=== PATIENT | female | born 1970 | race Two or more races ===

== ENCOUNTER 2016-12-28 07:47 | Day surgery (SDC) | payer BC ==
[2016-12-28] VITALS (8 sets, daily range): BP systolic 128–139; BP diastolic 63–79
[~2016-12-28] VITALS: Ht 167.6 cm; Wt 68.0 kg
--- NOTE | 2016-12-28 06:37 | Anethesia Preoperative Eval ---
Anesthesia Pre-op PMH/ROS General Date of Evaluation: Dec 28, 2016 Mallampati Score Class I : Soft palate, uvula, fauces, pillars visible Class II: Soft palate, uvula, fauces visible Class III: Soft palate, base of uvula visible Class IV: Only hard plate visible Allergies: Coded Allergies: No Known Allergies (Unverified , 12/27/16) DHRUV GREY M.D. Dec 28, 2016 06:37
--- NOTE | 2016-12-28 06:53 | Pre-Procedure Note/Attestation ---
Pre-Procedure Note/Attestation Complete Prior to Procedure Planned Procedure: right Procedure Narrative: ankle fracture orif Indications for Procedure Pre-Operative Diagnosis: right ankle fracture Attestation I attest that I discussed the nature of the procedure; its benefits; risks and complications; and alternatives (and the risks and benefits of such alternatives ), prior to the procedure, with the patient (or the patient's legal business services representative). I attest that, if there was a reasonable possibility of needing a blood transfusion, the patient (or the patient's legal business services representative) was given the [facility] standardized written summary, pursuant to the Shane Paxton Blood Safety Act ([place] Health and Safety Code # 1645, as amended). I attest that I re-evaluated the patient just prior to the surgery and that there has been no change in the patient's H&P, except as documented below: ROMERO ESPINOSA Dec 28, 2016 06:53
--- NOTE | 2016-12-28 06:54 | Operative Note - PDOC ---
Operative Note Operative Note Pre-op Diagnosis: right ankle fracture Procedure: orif right ankle Post-op Diagnosis: same as pre-op plus Anesthesia: regional Specimen: none Complications: none Condition: stable Estimated Blood Loss: none Implant(s) used?: Yes ROMERO ESPINOSA Dec 28, 2016 06:54
[~2016-12-28 07:47] MED LIST: D5 1/2NS 1,000 ML IV SCH; HYDROmorphone 1mg/ml Carpuject SUBQ PRN; NKM; Norco 5mg/325mg tab ORAL PRN; Tylenol #3 tab (300mg/30mg) ORAL PRN
[2016-12-28] MEDS ORDERED: celeBREX 200mg Cap **SURGERY PATIENTS ONLY ORAL ONE ×2 (08:30→08:46)
[2016-12-28] MEDS ORDERED: oxyCONTIN 20mg tab ORAL ONE (08:30)
[2016-12-28] MEDS ORDERED: ceFAZolin 1 GM premix IV ONE (08:30)
[2016-12-28] MEDS ORDERED: ceFAZolin sod 1 GM in NS 55 ML IVPB ONE (08:45)
[2016-12-28] MEDS ORDERED: celeBREX 100mg Cap **SURGERY PATIENTS ONLY ORAL ONE (08:45)
[2016-12-28] MEDS ORDERED: celeBREX 200mg Cap **SURGERY PATIENTS ONLY ORAL SCH (09:00)
[2016-12-28] MEDS ORDERED: oxyCONTIN 20mg tab ORAL SCH (09:00)
[2016-12-28] MEDS ORDERED: Bupivacaine w/Epi 0.5% 30ml Vial INJ ONE (09:05)
[2016-12-28] MEDS ORDERED: Ropivacaine 5mg/ml Vial 20ml INJ ONE (09:05)
[2016-12-28] MEDS ORDERED: Bacitracin 50000 Units Vial ONE (09:06)
[2016-12-28] MEDS ORDERED: Midazolam 2mg/2ml Inj ONE (09:45)
[2016-12-28] MEDS ORDERED: fentaNYL 100 mcg/2 mL IV ONE (09:45)
[2016-12-28] MEDS ORDERED: Sterile Water Irrig 1000ml IRRIG ONE (09:45)
[2016-12-28] MEDS ORDERED: Propofol 10mg/ml 20ml IV ONE (09:45)
[2016-12-28] MEDS ORDERED: Ketorolac 30mg Inj ONE (09:45)
[2016-12-28] MEDS ORDERED: LR 1000ml ONE (09:45)
[2016-12-28] MEDS ORDERED: Morphine Sulfate 10mg/ml Inj ONE (09:45)
[2016-12-28] MEDS ORDERED: NS Irrig 1000ml ONE (09:45)
--- NOTE | 2016-12-28 10:47 | Anethesia Preoperative Eval ---
Anesthesia Pre-op PMH/ROS General Date of Evaluation: Dec 28, 2016 Time of Evaluation: 10:28 Anesthesiologist: Geronimo ASA Score: ASA 2 Mallampati Score Class I : Soft palate, uvula, fauces, pillars visible Class II: Soft palate, uvula, fauces visible Class III: Soft palate, base of uvula visible Class IV: Only hard plate visible Mallampati Classification: Class II Surgeon: José Diagnosis: R ankle Fx Surgical Procedure: ORIF of R ankle Fx Anesthesia History: none Family History: no anesthesia problems Allergies: Coded Allergies: No Known Allergies (Unverified , 12/27/16) Medications: see eMAR Past Medical History Cardiovascular: Denies: HTN, CAD, UT, valve dz, arrhythmia, other Pulmonary: Denies: asthma, COPD, OTONIEL, other Gastrointestinal/Genitourinary: Reports: GERD - mild, Denies: CRI, ESRD, other Neurologic/Psychiatric: Denies: dementia, CVA, depression/anxiety, TIA, other Endocrine: Denies: DM, hypothyroidism, steroids, other HEENT: Denies: cataract (L), cataract (R), glaucoma, RUBY (L), RUBY (R), other Hematology/Immune: Denies: anemia, DVT, bleeding disorder, other Musculoskeletal/Integumentary: Denies: OA, RA, DJD, DDD, edema, other PMH Narrative: as above PSxH Narrative: none Anesthesia Pre-op Phys. Exam Physician Exam Last Vital Signs Date Time Temp Pulse Resp B/P (MAP) Pulse Ox O2 Delivery O2 Flow Rate FiO2 12/28/16 08:29 98.0 93 19 139/76 99 Room Air Constitutional: NAD Neurologic: CN 2-12 intact Cardiovascular: RRR, no M/R/G Respiratory: CTA Gastrointestinal: S/NT/ND Airway Exam Mallampati Score: Class II MO: full Neck: flexible ROM: full Teeth: intact Dentures: no upper, no lower Anesthesia Pre-op A/P Labs see chart Urine Test Test 12/28/16 08:20 Urine HCG, Qualitative Negative Studies Pre-op Studies: EKG - nsr Risk Assessment & Plan Assessment: ASA 2 Plan: GA with LMA R popliteal fossa block for post op pain control Status Change Before Surgery: No Pre-Antibiotics Drug: Ancef 1gr Given Within 1 Hr of Incision: Yes Time Given: 10:50 ERICA SHARMA M.D. Dec 28, 2016 10:47
[2016-12-28] MEDS ORDERED: LR 1000ml 1,000 ML IVLG SCH (10:48)
[2016-12-28] MEDS ORDERED: Metoclopramide 10mg/2ml Inj IVP PRN (11:00)
[2016-12-28] MEDS ORDERED: DiphenhydrAMINE 50mg/ml Inj IVP PRN (11:00)
[2016-12-28] MEDS ORDERED: Ketorolac 30mg Inj IV PRN (11:00)
[2016-12-28] MEDS ORDERED: Midazolam 2mg/2ml Inj IVP PRN (11:00)
[2016-12-28] MEDS ORDERED: Meperidine 25mg/0.5ml Inj (FOR RIGORS ONLY) IV PRN (11:00)
[2016-12-28] MEDS ORDERED: Hydromorphone 0.5mg/0.5ml inj IVP PRN (11:00)
--- NOTE | 2016-12-28 11:43 | Immediate Post-Op Evaluation ---
Immediate Post-Op Evalulation Immediate Post-Op Evalulation Procedure: ORIF of R ankle Fx Date of Evaluation: Dec 28, 2016 Time of Evaluation: 11:42 IV Fluids: 1400 Blood Products: none Estimated Blood Loss: min Urinary Output: none Blood Pressure Systolic: 131 Blood Pressure Diastolic: 72 Pulse Rate: 98 Respiratory Rate: 20 O2 Sat by Pulse Oximetry: 99 Temperature (Fahrenheit): 97.8 Pain Score (1-10): 1 Nausea: No Vomiting: No Complications none Patient Status: awake, patent, none Hydration Status: adequate ERICA SHARMA M.D. Dec 28, 2016 11:43
--- NOTE | 2016-12-28 12:29 | Diagnostic Imaging Report ---
Indication: Right ankle pain Comparison: None Findings: Fluoroscopic views of the right ankle obtained. Fluoroscopic images obtained during lateral ankle fixation showing lateral compression plate and medial malleolus fixation screw. Impression: Intraoperative imaging
--- NOTE | 2016-12-29 08:45 | Operative Note - Dictated ---
DATE OF OPERATION: 12/28/2016 PREOPERATIVE DIAGNOSIS: Right trimalleolar ankle fracture-dislocation. POSTOPERATIVE DIAGNOSIS: Right trimalleolar ankle fracture-dislocation. PROCEDURES: 1. Open reduction and internal fixation of right trimalleolar ankle fracture-dislocation with plate and screw fixation. 2. Right ankle arthrotomy and removal of intra-articular loose body. 3. Application of posterior splint. SURGEON: Wilberto Kumar M.D. ANESTHESIA: Popliteal with general. INDICATION FOR PROCEDURE: The patient is a pleasant female who sustained injury to her right ankle. She was diagnosed with a displaced trimalleolar ankle fracture-dislocation. She is indicated for operative fixation. Risks, limitations, expectations, and complications of her surgery were discussed in detail. All questions were addressed including infection, nonunion, malunion, need for future surgery, risk of anesthesia, medical complications, DVT, PE, and mortality risks. All questions addressed. DESCRIPTION OF PROCEDURE: After informed consent was obtained, the patient was brought to the operating room and placed supine under popliteal with general anesthesia. Tourniquet was applied to the right proximal thigh. Right leg was prepped and draped in a sterile manner. A lateral skin incision was then made. Blunt dissection down to the fascial of the lateral fibula was performed. The fracture site was identified, hematoma was removed, and the reduction of the lateral malleolus was performed. Both visually and fluoroscopically once anatomic reduction was obtained, a lag screw was placed. Once that was completed, a Nate lateral malleolus periarticular plate was selected and multiple screws were placed. The skin was approximated using 3-0 Vicryl suture and 3-0 Monocryl sutures. At this point, the medial malleolus was moderately displaced. There was felt with good range and active level, open reduction will be reasonable. The skin was incised. Saphenous vein was mobilized anteriorly. The medial malleolus was identified. The fracture was displaced distally. The intra-articular lavage of the joint was performed to remove any intra-articular loose bodies. Once that was done, reduction of the medial malleolus was performed, two cannulated screws were then placed. Once that was completed, AP and lateral imaging showed good overall reduction of the fracture present in the mortise. Although the patient had a posterior malleolus fracture, it appeared to be anatomically reduced once the medial and lateral fractures were reduced. At this point, the medial incision was approximated using 3-0 Monocryl sutures. Steri-Strips and a sterile dressing were applied including the posterior splint. The patient was awoken and taken to recovery room with stable signs. EBL: Minimal. COMPLICATIONS: None. SPECIMENS: None. IMPLANTS: Include a Gormania lateral malleolus periarticular plate, two 4-0 cannulated screws. Wilberto Kumar M.D. DR: SHELLEY JOB#: [id number] CC:
[2017-01-04 12:37] VITALS: BP 132/58
--- NOTE | 2017-01-04 12:37 | 48 Hour Post Anesthesia Eval ---
Post Anesthesia Evaluation Procedure: ORIF of R ankle Fx Date of Evaluation: Dec 28, 2016 Time of Evaluation: 16:10 Blood Pressure Systolic: 132 0: 58 Pulse Rate: 72 Respiratory Rate: 20 Temperature (Fahrenheit): 97.6 O2 Sat by Pulse Oximetry: 98 Airway: patent Nausea: No Vomiting: No Pain Intensity: 2 Hydration Status: adequate Cardiopulmonary Status: stable Mental Status/LOC: patient returned to baseline Follow-up Care/Observations: n/a Post-Anesthesia Complications: none Follow-up care needed: ready to discharge ERICA SHARMA M.D. Jan 04, 2017 12:37
== END 2016-12-28 13:35 | disposition home or self-care (01) ==
LOC: SUR 07:47
DX: S82.851A Displaced trimalleolar fracture of right lower leg, initial encounter for closed fracture (principal); M23.41 Loose body in knee, right knee; W16.512A Jumping or diving into swimming pool striking water surface causing other injury, initial encounter; Y93.11 Activity, swimming; Y92.89 Other specified places as the place of occurrence of the external cause; Y99.8 Other external cause status; K21.9 Gastro-esophageal reflux disease without esophagitis
CPT/HCPCS: 27620; 27822; 73600; 76001; 81025; C1713; J0690; J1885; J2250; J2270; J2405; J2704; J2795; J3010; J7120; 94003; 94150

== ENCOUNTER → 2017-01-23 | Outpatient (CLI) | payer BC ==
[~2017-01-23] MED LIST changes: -D5 1/2NS 1,000 ML IV SCH; -HYDROmorphone 1mg/ml Carpuject SUBQ PRN; -Norco 5mg/325mg tab ORAL PRN; -Tylenol #3 tab (300mg/30mg) ORAL PRN
--- NOTE | 2017-01-23 14:29 | Diagnostic Imaging Report ---
Indication: Pain, history of recent ORIF Technique: 3 views of the right ankle Comparison: Reference made to intraoperative images of 12/28/2016 Findings: Overlying splint obscures bony detail. Previously demonstrated surgical hardware, reducing distal fibular and medial malleolar fractures, is again demonstrated, alignment grossly unchanged from the previous study. The distal fibular and medial malleolar fracture lines persist, but there is no change in the bony alignment. Impression: Surgical hardware seen reducing as yet ununited distal fibular and medial malleolar fractures No definite acute bony trauma Note that exam is limited due to the presence of an overlying splint
== END | disposition home or self-care (01) ==
LOC: RAD 11:20
DX: S82.401G Unspecified fracture of shaft of right fibula, subsequent encounter for closed fracture with delayed healing (principal); S82.51XG Displaced fracture of medial malleolus of right tibia, subsequent encounter for closed fracture with delayed healing; X58.XXXD Exposure to other specified factors, subsequent encounter